=== PATIENT | male | born 1960 | race Asian ===

== ENCOUNTER → 2019-01-18 | Outpatient (CLI) | payer BC | END | disposition home or self-care (01) | LOC: RADPV 10:02 | PROVIDERS: ATTEND Hospitalist | DX: N18.4 Chronic kidney disease, stage 4 (severe) (principal); E04.1 Nontoxic single thyroid nodule | CPT/HCPCS: 76536; 76770 ==

== ENCOUNTER 2019-03-08 07:11 | Day surgery (SDC) | payer BC ==
[~2019-03-08] VITALS: Ht 152.4 cm; Wt 66.8 kg
[~2019-03-08 07:11] MED LIST: SODIUM CHLORIDE 0.9% 1,000 ML IV ONE
[2019-03-08] MEDS ORDERED: FURO20 PO (07:54)
[2019-03-08] MEDS ORDERED: GLIM2 PO (07:54)
[2019-03-08] MEDS ORDERED: ALLO100T PO (07:54)
[2019-03-08] MEDS ORDERED: ATOR20TA86 PO (07:54)
[2019-03-08] MEDS ORDERED: LINA5TAB PO (07:54)
[2019-03-08] MEDS ORDERED: COLC0.6T76 PO (07:54)
[2019-03-08 08:24] LABS: GLUCOMETER DEV NAME(LOC) SDS.; GLUCOSE,POINT OF CARE 176 MG/DL (70-110)
[2019-03-08] MEDS ORDERED: FentaNYL CITRATE-PF 100 MCG/2 ML VIAL ONE (09:26)
[2019-03-08] MEDS ORDERED: MIDAZOLAM HCL 2 MG/2 ML VIAL ONE (09:27)
[2019-03-08] MEDS ORDERED: LIDOCAINE/PF 1% 30 ML VIAL ONE ×2 (09:27→09:34)
[2019-03-08 09:30] LABS: PROTHROMBIN TIME 10.2 SEC (9.4-11.6)
[2019-03-08] MEDS ORDERED: GELATIN SPONGE,ABSORBABLE 12-7 MM TP ONE (09:36)
[2019-03-08] MEDS ORDERED: MIDAZOLAM HCL 2 MG/2 ML VIAL IVP ONE (10:20)
[2019-03-08] MEDS ORDERED: FentaNYL CITRATE-PF 100 MCG/2 ML VIAL IVP ONE (10:20)
== END 2019-03-08 14:35 | disposition home or self-care (01) ==
LOC: SURGERY 07:11 → EDSTATUS 09:00 → SURGERY 14:35
PROVIDERS: ATTEND Hospitalist
DX: E11.22 Type 2 diabetes mellitus with diabetic chronic kidney disease (principal); N18.5 Chronic kidney disease, stage 5; E78.5 Hyperlipidemia, unspecified; Z79.899 Other long term (current) drug therapy; I12.9 Hypertensive chronic kidney disease with stage 1 through stage 4 chronic kidney disease, or unspecified chronic kidney disease; E11.21 Type 2 diabetes mellitus with diabetic nephropathy; E11.319 Type 2 diabetes mellitus with unspecified diabetic retinopathy without macular edema; I12.0 Hypertensive chronic kidney disease with stage 5 chronic kidney disease or end stage renal disease; Z87.891 Personal history of nicotine dependence; Z72.89 Other problems related to lifestyle; M10.9 Gout, unspecified; E78.00 Pure hypercholesterolemia, unspecified
CPT/HCPCS: 36415; 50200; 77012; 82962; 85610; 85730; 88300; J2250; J3010; J7030; J3490